=== PATIENT | female | born 1985 | race Caucasian/White ===

== ENCOUNTER 2018-08-22 07:51 | Emergency (ER) | payer BC, OTHER ==
[~2018-08-22] VITALS: Ht 165.1 cm; Wt 86.2 kg
[2018-08-22 08:14] LABS: URINE BILIRUBIN NEGATIVE (Negative); URINE BLOOD TRACE (Negative); URINE CLARITY CLEAR; URINE COLOR YELLOW; URINE GLUCOSE-RANDOM* NEGATIVE (Negative); URINE KETONES NEGATIVE (Negative); URINE LEUKOCYTES-REFLEX NEGATIVE (Negative); URINE NITRITE-REFLEX NEGATIVE (Negative); URINE PROTEIN (DIPSTICK) 1+ (Negative); URINE SPECIFIC GRAVITY >= 1.030 (1.005-1.035); URINE UROBILINOGEN 0.2 E.U./dl (0.2-1.0)
[2018-08-22 08:31] LABS: ABSOLUTE NEUTROPHILS 13.4 thou/uL (1.4-8.2); BASOPHILS 0.5 % (0.0-2.0); EOSINOPHILS 0.2 % (0.0-3.0); HEMATOCRIT 41.4 % (37.0-47.0); HEMOGLOBIN 14.3 gm/dL (12.0-15.0); LYMPHOCYTES 7.7 % (24.0-44.0); MCH 30.7 pg (26.0-34.0); MCHC 34.5 g/dL (28.0-37.0); MCV 89.1 fL (80.0-100.0); MONOCYTES 5.6 % (1.0-8.0); PLATELET COUNT 199 thou/uL (150-400); RBC 4.64 mil/uL (4.20-5.00); RDW 12.1 % (10.5-14.5); WBC 15.6 thou/uL (4.0-11.0)
[2018-08-22 08:37] LABS: MUCUS 4-6 Moderate strn/LPF (None Seen); SQUAMOUS >10 Many /LPF (0-3)
[2018-08-22 08:38] LABS: CASTS None Seen /LPF (None Seen)
[2018-08-22 08:39] LABS: CREATININE 0.9 mg/dL (0.6-1.0); POTASSIUM 3.5 mmol/L (3.5-5.1)
[2018-08-22 08:41] LABS: BACTERIA-REFLEX 1-9 Few /HPF (None Seen); CRYSTALS None Seen /LPF (None Seen); URINE RBC 0-2 Rare /HPF (0-2); URINE WBC-REFLEX 0-5 Rare /HPF (0-5)
[2018-08-22 08:45] LABS: TOTAL BILIRUBIN 0.6 mg/dL (<0.1-1.0); TOTAL PROTEIN 7.8 g/dL (6.4-8.2)
[2018-08-22] MEDS ORDERED: NORCO 5-325 TA1 EACH PO (10:15)
[2018-08-22] MEDS ORDERED: CIPROFLOXACIN500 M1 PO (10:15)
[2018-08-22] MEDS ORDERED: ZOFRAN ODT4 MG PO (10:15)
[2018-08-22] MEDS ORDERED: PROTONIX40 M4 PO (10:15)
[2018-08-22] MEDS ORDERED: CARAFATE 1 GM TA1 G1 PO (11:12)
[2018-08-22 11:50] VITALS: BP 125/81
== END 2018-08-22 11:51 | disposition home or self-care (01) ==
LOC: ER 07:51
PROVIDERS: Emergency Medicine
DX: K52.9 Noninfective gastroenteritis and colitis, unspecified (principal); F17.210 Nicotine dependence, cigarettes, uncomplicated; Z88.1 Allergy status to other antibiotic agents; Z88.8 Allergy status to other drugs, medicaments and biological substances